=== PATIENT | female | born 1970 | race Caucasian/White ===

== ENCOUNTER 2017-05-31 07:00 | Day surgery (SDC) | payer BC, OTHER ==
[~2017-05-31] VITALS: Ht 160 cm; Wt 67.6 kg
[~2017-05-31 07:00] MED LIST: CALCIUM + VITA1 EAC2 PO; CHANTIX0.5 MG PO; GUMMI BEAR MUL1 EACH PO; NORCO 7.5-3251 EACH PO; ULTRAM50 MG PO
--- NOTE | 2017-05-31 08:28 | NUR ---
05/31/17 0828 Maycol Watkins RESPONDS TO VOICE ATY 0825. REORIENTED PT TO TIME AND SITUATION. DENIES NAUSEA OR PAIN. FALLS ASLEEP EASILY
--- NOTE | 2017-05-31 09:00 | NUR ---
ICED WATER AND JELLO GIVEN. PT EATS AND DRINKS AND TOLERATES THAT WELL. CALL LIGHT W/IN REACH.
[2017-05-31] MEDS ORDERED: PERCOCET 5-3251 EACH PO (09:14)
[2017-05-31] MEDS ORDERED: ADVIL200 MG PO (09:15)
--- NOTE | 2017-05-31 09:45 | NUR ---
CALL TO PATIENT'S RIDE PER HER REQUEST AND SHE REPORTS SHE WILL BE HERE IN 30 MINUTES.
--- NOTE | 2017-05-31 10:40 | NUR ---
LE 1030: PT UP TO BR W/RN STANDBY. PT AMBULATES WELL AND DENIES DIZZINESS. PT VOIDS 600 ML CLEAR YELLOW URINE. VERBAL DC INSTRUCTIONS GIVEN IN PRESENCE OF DAUGHTER IN LAW AND SHE AND PT BOTH VERBALIZE UNDERSTANDING. PT DRESSES SELF IN PRESENCE OF DAUGHTER IN LAW AND TRANSFERS SELF TO WC AND PERSONAL VEHICLE WELL.
--- NOTE | 2017-06-08 12:53 | OR ---
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 PROCEDURE: Cold knife conization. SURGEON: Gracia Almendarez M.D. ANESTHESIA: General endotracheal with pharyngeal mask per Sam Barclay CRNA. IV FLUIDS IN: 1500 mL of lactated Ringer's. ESTIMATED BLOOD LOSS: 10 mL. URINE OUTPUT: 10 mL. PATHOLOGY SPECIMEN: Cervical conization marked with silk stitch at 12 o'clock position. FINDINGS: Mildly enlarged parous cervix. PROCEDURE TECHNIQUE: The patient was taken back to the operating room with IV fluids hanging. She was placed on the operating table in supine position, underwent general endotracheal anesthesia with pharyngeal mask rapid sequence intubation, was subsequently placed in the dorsal lithotomy position in candy-cane stirrups. She was then prepped and draped in normal sterile fashion, straight cathed with 10 mL urine output. A sterile weighted speculum Electronically Signed By: GRACIA ALMENDAREZ MD 06/08/17 1253 PATIENT NAME: MULUGETA RUST OPERATIVE REPORT DATE OF : 72 PHYSICIAN: GRACIA ALMENDAREZ MD REPORT #: [id number] REPORT IS CONFIDENTIAL AND NOT TO BE RELEASED WITHOUT AUTHORIZATION [facility] [address] [place] [address] Signed was then placed in the vagina. The patient was placed into Trendelenburg position and curved retractor was then used to visualize the cervix. O chromic stitch on a U needle was then placed on first the right side of the cervix at 3 o'clock position and then the left side, tied down for hemostasis. Paracervical block was performed with 10 mL of 0.5% plain Marcaine and a #10 blade was then used to perform the conization. Good specimen was retrieved and sent off to pathology marked as noted. Once the specimen was removed. Cautery was then used for hemostasis and subsequently Monsel's solution was placed for further hemostasis. The stitches were then cut short on either side of the cervix and all instruments removed from the vagina. The patient did well. Needle, instrument, and sponge counts were all correct. The patient was awakened, extubated, taken to recovery room in stable condition. Gracia Almendarez MD JKM/MODL /[id number] Electronically Signed By: GRACIA ALMENDAREZ MD 06/08/17 1253 PATIENT NAME: MULUGETA RUST OPERATIVE REPORT DATE OF : 72 PHYSICIAN: GRACIA ALMENDAREZ MD REPORT #: [id number] REPORT IS CONFIDENTIAL AND NOT TO BE RELEASED WITHOUT AUTHORIZATION
== END 2017-05-31 10:35 | disposition home or self-care (01) ==
LOC: DS 07:00
PROVIDERS: Obstetrics & Gynecology
PROC: 0UBC7ZZ Excision of Cervix, Via Natural or Artificial Opening (ICD-10-PCS; principal; 2017-05-31 06:45)
DX: N87.0 Mild cervical dysplasia (principal); M81.0 Age-related osteoporosis without current pathological fracture; Z88.5 Allergy status to narcotic agent; Z88.8 Allergy status to other drugs, medicaments and biological substances; Z90.49 Acquired absence of other specified parts of digestive tract; Z98.818 Other dental procedure status; Z98.890 Other specified postprocedural states; Z79.899 Other long term (current) drug therapy
CPT/HCPCS: 00940; J1100; J1885; J2250; J2405; J2704; J2765; J3010; J7120

== ENCOUNTER 2017-08-28 18:19 | Emergency (ER) | payer BC, OTHER ==
[~2017-08-28] VITALS: Ht 160 cm; Wt 67.6 kg
[~2017-08-28 18:19] MED LIST changes: +ADVIL200 MG PO; +PERCOCET 5-3251 EACH PO
--- NOTE | 2017-08-29 04:59 | EKG ---
[facility] [address] [facility] [place], [place] [address] Signed Normal sinus rhythm Normal ECG No previous ECGs available Confirmed by NELSY MORALES MD ([id number]) on 08/29/2017 4:59:16 AM Electronically Signed By: NELSY MORALES MD 08/29/17 0459 PATIENT NAME: MULUGETA RUST GARETT Electrocardiogram DATE OF : 72 PHYSICIAN: NELSY MORALES MD REPORT #: [id number] REPORT IS CONFIDENTIAL AND NOT TO BE RELEASED WITHOUT AUTHORIZATION
== END 2017-08-28 23:20 | disposition home or self-care (01) ==
LOC: ED 18:19
DX: R07.89 Other chest pain (principal); F17.200 Nicotine dependence, unspecified, uncomplicated; Z88.1 Allergy status to other antibiotic agents; Z88.8 Allergy status to other drugs, medicaments and biological substances; Z79.899 Other long term (current) drug therapy
CPT/HCPCS: 71046; 80053; 84484; 85025; 93005; 93010; 96374; 99284; J1885

== ENCOUNTER 2021-06-16 14:15 | Emergency (ER) | payer OTHER, BC ==
[~2021-06-16] VITALS: Ht 160 cm; Wt 66.6 kg
== END 2021-06-16 15:57 | disposition home or self-care (01) ==
LOC: ED 14:15
DX: S90.31XA Contusion of right foot, initial encounter (principal); F17.200 Nicotine dependence, unspecified, uncomplicated; Z88.1 Allergy status to other antibiotic agents; Z88.8 Allergy status to other drugs, medicaments and biological substances; W22.8XXA Striking against or struck by other objects, initial encounter
CPT/HCPCS: 73630; 99283